=== PATIENT | male | born 1985 | race Caucasian/White ===

== ENCOUNTER 2020-12-25 11:10 | Emergency (ER) | payer OTHER ==
[~2020-12-25] VITALS: Ht 170.2 cm; Wt 99.0 kg
--- NOTE | 2020-12-25 12:00 | NUR ---
assumed care of pt. pt here for questionable sore to penis after new recent unprotected sexual contact. pt denies hematuria or D/C, but states that he does have some burning on urination. pt reports that he has a hx of herpes and that the "sore" currently on his penis looks different. not painful to palpation. CXR has been to bedside. lab at bedside to draw. pt education given regarding the importance of the use of condoms to prevent SDT contraction or spread. pt states that he refuses penile swab. no urine sample ordered at this time
--- NOTE | 2020-12-25 12:14 | NUR ---
report to Jered RICKS for lunch
[2020-12-25 12:26] LABS: BASOPHILS % (AUTO) 1 % (0-1); EOSINOPHILS % (AUTO) 2 % (1-7); LYMPHOCYTES % (AUTO) 32 % (22-44); MD NO; MEAN CORPUSCULAR HEMOGLOBIN 30.2 pg (27.5-34.5); MEAN CORPUSCULAR HGB CONC 35.3 g/dL (33.2-36.2); MEAN PLATELET VOLUME 8.7 fL (7.4-10.4); MONOCYTES % (AUTO) 5 % (2-9); NEUTROPHILS % (AUTO) 61 % (42-75); PLATELET COUNT 226 x10^3/uL (130-400); RED BLOOD COUNT 4.78 x10^6/uL (4.38-5.82); RED CELL DISTRIBUTION WIDTH 13.2 % (9.4-14.8)
[2020-12-25 12:33] LABS: ALANINE AMINOTRANSFERASE 48 U/L (12-78); ANION GAP 7 mmol/L (5-15); CALCIUM 9.2 mg/dL (8.5-10.1); CHLORIDE 109 mmol/L (98-107)
[2020-12-25 12:37] LABS: ALKALINE PHOSPHATASE 70 U/L (45-117); BILIRUBIN,TOTAL 0.4 mg/dL (0.2-1.0); TOTAL PROTEIN 7.3 g/dL (6.4-8.2); TROPONIN I < 0.015 ng/mL (0.000-0.045)
--- NOTE | 2020-12-25 13:00 | NUR ---
pt resting in position of comfort. awaiting test results. no family at bedside
--- NOTE | 2020-12-25 13:30 | NUR ---
urine sample collected and sent. pt updated on POC.
--- NOTE | 2020-12-25 13:55 | NUR ---
pt up for recheck
--- NOTE | 2020-12-25 14:01 | NUR ---
Dr Cummings at bedside for recheck
[2020-12-25] MEDS ORDERED: AZITHROMYCIN 500 MG TABLET PO ONE (14:30)
[2020-12-25] MEDS ORDERED: CEFTRIAXONE 1,000 MG IM ONE (14:30)
[2020-12-25] MEDS ORDERED: AZITHROMYCIN 500 MG TABLET ONE (14:33)
[2020-12-25] MEDS ORDERED: CEFTRIAXONE 1,000 MG ONE (14:34)
--- NOTE | 2020-12-25 14:44 | NUR ---
pt has been medicated per order
[2020-12-25 15:01] VITALS: BP 120/75
== END 2020-12-25 15:05 | disposition home or self-care (01) ==
LOC: ED 11:31
DX: R07.9 Chest pain, unspecified (principal); L98.8 Other specified disorders of the skin and subcutaneous tissue; N50.811 Right testicular pain; N50.812 Left testicular pain
CPT/HCPCS: 36415; 71045; 80053; 84484; 85025; 87491; 87591; 93005; 96372; 99285; J0696